=== PATIENT | female | born 1955 | race Caucasian/White ===

== ENCOUNTER → 2019-01-06 | Outpatient (CLI) | payer MEDICARE, OTHER ==
--- NOTE | 2019-01-09 19:02 | EEG ---
DATE OF SERVICE: 01/09/2019 ATTENDING PHYSICIAN: Dr. Becerra EEG NUMBER: [id number]. OBJECTIVE: The patient is a 63-year-old female with tremors, frequent falls, possible seizures, episodes of paralysis. DESCRIPTION: This is a digital study. Electrodes are placed according to the international 10-20 system. Bipolar and referential montages are available. Activation procedures typically include hyperventilation and intermittent photic stimulation. INTERPRETATION: The waking background consists of 9-10 Hz, 50-100 microvolt activity, symmetrically distributed over parietooccipital regions and reactive to eye opening. Drowsiness is achieved, but the patient does not fully fall asleep. Hyperventilation and intermittent photic stimulation are noncontributory. The computer-identified abnormalities are reviewed in detail and none are of any significance. IMPRESSION: This electroencephalogram with the patient awake and drowsy is within normal limits. There is no focal, paroxysmal, or epileptiform activity. Thank you for letting us help with the patient's care. CINDY CAVAZOS MD DR: JEAN PAUL/brielle JOB#: [id number] / [id number] BERT Glover MD
== END | disposition home or self-care (01) ==
LOC: RT 10:51
PROVIDERS: ATTEND Psychiatry & Neurology Neurology with Special Qualifications in Child Neurology
DX: R29.6 Repeated falls (principal); G83.9 Paralytic syndrome, unspecified; R25.1 Tremor, unspecified; Q04.8 Other specified congenital malformations of brain; R26.9 Unspecified abnormalities of gait and mobility
CPT/HCPCS: 95816

== ENCOUNTER → 2019-01-11 | Outpatient (CLI) | payer MEDICARE ==
--- NOTE | 2019-01-11 11:34 | RAD ---
MRI Brain without contrast History: Unsteady gait, recent falls, cerebellar tonsillar ectopia Technique: Multiplanar, multisequential noncontrast MR imaging was performed of the brain. Comparison: None Findings: There is mild motion. There is no evidence of recent infarct or cytotoxic edema. 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 There is no intra-axial mass effect, midline shift, extra-axial fluid collection. There is scattered mild T2 and FLAIR hyperintense signal abnormality of the supratentorial parenchyma including of the bilateral basal ganglia and white matter, questionably of the scot although artifact in this region. 3 foci of the left basal ganglia and ortiz radiata are likely due to sequela of old small lacunar infarcts. There is no significant hemosiderin deposition of the brain parenchyma. There is preservation of the major arterial flow voids the skull base. There is very mild thickening of the left mastoid air cells. Paranasal sinuses are overall aerated. Cerebellar tonsils are normal in location. There is no significant abnormality of pineal gland or pituitary gland. There is nonspecific mild heterogeneity of the marrow of the nonexpanded clivus. Impression: 1. There is no significant intracranial mass effect or evidence of recent infarct. There is overall mild T2 and FLAIR hyperintense signal abnormality of the supratentorial parenchyma which may be due to chronic microvascular ischemic disease, also small old lacunar infarcts of the left basal ganglia and ortiz radiata. Electronically signed by: Lon Hatch MD (01/11/2019 11:32 AM) [id number]
== END | disposition home or self-care (01) ==
LOC: MRI 09:57 → EDUNIT# 10:30
PROVIDERS: ATTEND Psychiatry & Neurology Neurology with Special Qualifications in Child Neurology
DX: G93.0 Cerebral cysts (principal); R90.82 White matter disease, unspecified; Q04.8 Other specified congenital malformations of brain; G83.9 Paralytic syndrome, unspecified
CPT/HCPCS: 70551

== ENCOUNTER → 2019-03-13 | Outpatient (CLI) | payer MEDICARE, OTHER ==
--- NOTE | 2019-03-13 15:14 | RAD ---
Gastric Emptying Study Indication: Nausea, vomiting. Retained food within stomach at EGD. Procedure: Anterior and posterior projection static images are obtained over the stomach following oral administration of 1.5 mCi of 99 M technetium sulfur colloid in a solid meal. Time points include an immediate baseline, and 1, 2, 3, and 4 hours post ingestion. Findings: There is progressive emptying of the stomach on sequential images. Percentage retention at... One hour is 74% (normal 34.8-91%). Two hours 34% (normal 2.7-60%). Three hours 7% (normal 0.5-28%). Four hours 1% (normal 0-10%). Impression: Normal 4 hour protocol gastric emptying study. Consensus Recommendations for Gastric Emptying Scintigraphy: A Joint Report of the [place] [employer] and the Society of Nuclear Medicine: J. Nucl. Med. Technol. November 2007 vol. 36 no. 1 44-54 Grading for severity of delayed GE based on the 4-h value: grade 1 (mild): 11?20% retention at 4 h grade 2 (moderate): 21?35% retention at 4 h grade 3 (severe): 36?50% retention at 4 h grade 4 (very severe): >50% retention at 4 h. Electronically signed by: Rudy Owens MD (03/13/2019 3:11 PM) [id number]
== END | disposition home or self-care (01) ==
LOC: NM 08:55
PROVIDERS: ATTEND Internal Medicine Gastroenterology
DX: R13.10 Dysphagia, unspecified (principal); R11.2 Nausea with vomiting, unspecified
CPT/HCPCS: 78264; A9541

== ENCOUNTER → 2019-07-05 | Outpatient (CLI) | payer MEDICARE, OTHER ==
[2019-05-18 03:15] VITALS: BP 105/65
[~2019-07-05] MED LIST: BARIUM SULFATE 340 GM SUSPENSION. PO ONE; BARIUM SULFATE 60% 355 ML SUSP PO ONE; CEPH-264 PO; CEPH500T PO; FURO-69 PO; SIMETHICONE/SOD BICARB/CITRIC ACID PACKET. PO ONE
--- NOTE | 2019-07-05 12:12 | RAD ---
EXAM: DOUBLE CONTRAST BARIUM ESOPHAGRAM. HISTORY: Difficulty swallowing. Food gets stuck. COMPARISON: None. FINDINGS: Barium contrast material was administered orally and followed in its course through the pharynx, esophagus and gastroesophageal junction with fluoroscopy. Effervescent crystals were administered for air double contrast. Fluoroscopy time 2 minutes. 17 fluoroscopic series were obtained. Trace aspiration was noted on one swallow. See the lateral pharyngeal image. No pharyngeal lesions are seen. There is a focal narrowing within the distal esophagus just proximal to the gastroesophageal junction. This is consistent with a Schatzki ring. This does not appear to significantly narrow the lumen. Esophageal motility was somewhat weak, but there is only mild distal esophageal dysmotility. No spasm was seen. There is a small hiatal hernia. The gastroesophageal junction opened promptly. Gastroesophageal reflux was observed. IMPRESSION: 1. Focal narrowing within the distal esophagus consistent with a Schatzki ring. The degree of luminal narrowing does not appear to be significant. 2. Small variable hiatal hernia. Gastroesophageal reflux. 3. Endoscopy is more sensitive for mucosal lesions if there is persistent concern. Electronically signed by: Ashia Antonio MD (07/05/2019 12:09 PM) [facility]
== END | disposition home or self-care (01) ==
LOC: RAD 07:45
PROVIDERS: ATTEND Internal Medicine
DX: K44.9 Diaphragmatic hernia without obstruction or gangrene (principal); K22.2 Esophageal obstruction; K22.4 Dyskinesia of esophagus; K21.9 Gastro-esophageal reflux disease without esophagitis
CPT/HCPCS: 74220